=== PATIENT | female | born 1985 | race Caucasian/White ===

== ENCOUNTER 2019-05-15 05:59 | Inpatient (IN) ==
[2019-05-15] MEDS ORDERED: BUTORPHANOL 2 MG/ML VIAL IV PRN (06:08)
[2019-05-15] MEDS ORDERED: MEPERIDINE 50 MG/1 ML VIAL IV PRN (06:08)
[2019-05-15] MEDS ORDERED: OXYTOCIN/LR 20 UNIT/1,000 ML BAG IV SCH (06:30)
[2019-05-15] MEDS: LACTATED RINGERS 1,000 ML IV SCH ×2 (06:44→07:14)
[2019-05-15] MEDS ORDERED: AMPICILLIN INJ 2,000 MG in SODIUM CHLORIDE 0.9% 100 ML IV SCH (07:00)
[2019-05-15 07:35] LABS: Basophils % 0.3 % (0.0-0.8); Eosinophils # 0.1 10*3/uL (0.0-0.87); Eosinophils % 0.4 % (0.00-10.9); Hematocrit 36.2 VOL% (35.7-47.0); Hemoglobin 11.9 GM/DL (12.0-16.0); Immature Granulocytes % 0.7 %; Immature Granulocytes Absolute 0.09 #; Lymphocytes # 2.8 10*3/uL (1.4-4.0); Lymphocytes % 20.4 % (21.3-54.2); Mean Corpuscular HGB Conc 32.9 GM/DL (32-36); Mean Corpuscular Volume 86.8 FL (87-102); Mean Platelet Volume 9.9 FL (9.6-12.0); Monocytes % 6.5 % (1.7-12.7); Neutrophils % 71.7 % (38.7-73.9); Platelet Count 245 T/CUMM (130-400); Red Blood Count 4.17 MC/CUMM (3.8-5.5); Red Cell Distribution Width 14.4 % (9.3-17.3); White Blood Count 13.7 T/CUMM (4-12)
[2019-05-15 08:21] LABS: Albumin 2.8 G/DL (3.4-5.0); Bilirubin,Total 0.4 MG/DL (0.2-1.0); Calcium 8.7 MG/DL (8.5-10.1); Osmolality,Calculated 277.3 MOS/KG (273-304); Total Protein 6.5 G/DL (6.4-8.3)
[2019-05-15] MEDS: AMPICILLIN INJ 1,000 MG in SODIUM CHLORIDE 0.9% 100 ML IV SCH ×3 (11:27→20:56)
[2019-05-15] MEDS ORDERED: PROMETHAZINE 25 MG/1 ML VIAL IM ONE (18:41)
[2019-05-15] MEDS ORDERED: CITRIC ACID/SODIUM CITRATE 30 ML UDCUP PO ONE (18:41)
[2019-05-15] MEDS ORDERED: diphenhydrAMINE 50 MG/1 ML VIAL IV PRN ×2 (18:41)
[2019-05-15] MEDS ORDERED: FAMOTIDINE 20 MG/2 ML VIAL IV ONE (18:41)
[2019-05-15] MEDS ORDERED: ePHEDrine 50 MG/ML AMP IV PRN (18:41)
[2019-05-15] MEDS ORDERED: hydrOXYzine HCL 25 MG/1 ML VIAL IM PRN (18:41)
[2019-05-15] MEDS ORDERED: NALOXONE 0.4 MG/ML VIAL IV PRN (18:41)
[2019-05-15] MEDS ORDERED: LACTATED RINGERS 1,000 ML IV ONE (18:41)
[2019-05-15] MEDS ORDERED: fentaNYL 2 MCG/ROPIV 0.2% EPID 100 ML EPIDURAL SCH (19:00)
[2019-05-15] MEDS: ONDANSETRON 4 MG/2 ML VIAL IV PRN (20:38)
[2019-05-15 21:08] LABS: Apearance,Urine CLEAR (Clear); Bacteria,Urine Occasional /HPF (Few); Bilirubin,Urine Negative (Negative); Blood, Urine Negative (Negative); Glucose,Urine (UA) Negative (Negative); Ketones,Urine 80 mg/dL (Negative); Mucus,Urine Occasional /LPF (Occasional); Nitrite,Urine Negative (Negative); Protein,Urine Negative; Squamous Epithelial Cell,Urine Occasional /HPF (0-10); Urine Color Yellow (Yellow); Urine Specific Gravity 1.012 (1.001-1.035); Urine Urobilinogen < 2.0 EU/DL (0.2-1.0)
[2019-05-16] MEDS: AMPICILLIN INJ 1,000 MG in SODIUM CHLORIDE 0.9% 100 ML IV SCH ×3 (01:09→07:55)
[2019-05-16] MEDS ORDERED: ACETAMINOPHEN 500 MG TABLET PO ONE (04:14)
[2019-05-16] MEDS: ONDANSETRON 4 MG/2 ML VIAL IV PRN ×2 (08:20→17:27)
[2019-05-16] MEDS ORDERED: ceFAZolin 2,000 MG in PREMIX 1 EACH IV ONE (09:28)
[2019-05-16] MEDS ORDERED: miSOPROStol 200 MCG TABLET ONE (11:36)
[2019-05-16] MEDS ORDERED: OXYTOCIN/LR 0 UNIT/0 ML BAG IV ONE (11:36)
[2019-05-16] MEDS ORDERED: METHYLERGONOVINE 0.2 MG/1 ML AMP ONE (11:37)
[2019-05-16] MEDS ORDERED: CARBOPROST TROMETHAMINE 250 MCG/ML AMP IM ONE (11:37)
[2019-05-16] MEDS ORDERED: MORPHINE 10 MG/10 ML VIAL ONE (12:27)
[2019-05-16] MEDS ORDERED: PHENYLEPHRINE 1 MG/10 ML SYRINGE IV ONE (12:27)
[2019-05-16] MEDS ORDERED: LIDOCAINE MPF 2% /EPI 20 ML VIAL ONE (12:27)
[2019-05-16] MEDS: ceFAZolin 1,000 MG in SYRINGE 1 EACH IV SCH (19:55)
[2019-05-17] MEDS: IBUPROFEN 800 MG TABLET PO PRN ×4 (02:19→23:42)
[2019-05-17] MEDS: ceFAZolin 1,000 MG in SYRINGE 1 EACH IV SCH (03:31)
[2019-05-17 04:49] LABS: Basophils % 0.2 % (0.0-0.8); Eosinophils % 0.4 % (0.00-10.9); Hematocrit 30.2 VOL% (35.7-47.0); Hemoglobin 9.8 GM/DL (12.0-16.0); Immature Granulocytes % 0.5 %; Immature Granulocytes Absolute 0.05 #; Lymphocytes # 2.5 10*3/uL (1.4-4.0); Lymphocytes % 24.6 % (21.3-54.2); Mean Corpuscular HGB Conc 32.5 GM/DL (32-36); Mean Corpuscular Volume 88.6 FL (87-102); Mean Platelet Volume 9.6 FL (9.6-12.0); Monocytes % 9.7 % (1.7-12.7); Neutrophils % 64.6 % (38.7-73.9); Platelet Count 193 T/CUMM (130-400); Red Blood Count 3.41 MC/CUMM (3.8-5.5); Red Cell Distribution Width 14.5 % (9.3-17.3)
[2019-05-17] MEDS: MULTIVITAMIN (PRENATAL) TABLET PO SCH (09:00)
[2019-05-17] MEDS: DOCUSATE SODIUM 100 MG CAPSULE PO SCH ×2 (09:00→21:40)
[2019-05-17] MEDS: MAGNESIUM HYDROXIDE SUSP 30 ML UDCUP PO PRN ×2 (11:48→21:40)
[2019-05-18 07:29] VITALS: BP 117/75
[2019-05-18] MEDS: DOCUSATE SODIUM 100 MG CAPSULE PO SCH (08:26)
[2019-05-18] MEDS: IBUPROFEN 800 MG TABLET PO PRN (08:26)
[2019-05-18] MEDS: MULTIVITAMIN (PRENATAL) TABLET PO SCH (09:56)
== END 2019-05-18 14:05 | disposition home or self-care (01) | DRG 788 ==
LOC: N.LDOUT 05:59 → N.LD 06:01 → N.OB 05-16 16:07
PROVIDERS: ADMIT Obstetrics & Gynecology; ATTEND Obstetrics & Gynecology
PROC: LDCSECT (ICD-10-PCS; 2019-05-16 10:30)